=== PATIENT | male | born 1970 | race Caucasian/White ===

== ENCOUNTER → 2017-11-03 | Outpatient (CLI) | payer BC ==
[2017-11-03 11:25] LABS: BUN/CREATININE RATIO 13.7 (6.0-26.0); CALCIUM 8.9 mg/dL (8.4-10.2); POTASSIUM 4.6 mmol/L (3.6-5.0); TOTAL BILIRUBIN 0.9 mg/dL (0.2-1.3); TOTAL PROTEIN 7.1 g/dL (6.3-8.2)
== END ==
LOC: LAB 10:38
PROVIDERS: Family Medicine
DX: Z00.00 Encounter for general adult medical examination without abnormal findings (principal); Z23 Encounter for immunization; N52.9 Male erectile dysfunction, unspecified; M25.561 Pain in right knee; R06.81 Apnea, not elsewhere classified; L30.9 Dermatitis, unspecified

== ENCOUNTER → 2018-02-11 | Outpatient (CLI) | payer BC ==
[2018-02-11 09:36] LABS: EOS # 0.1 (0.04-0.40); EOS % 1.7 % (0.0-4.0); HEMATOCRIT 46.1 % (42.0-52.0); HEMOGLOBIN 15.6 g/dL (13.5-18.0); LYMPH# 1.5 (1.50-4.00); MEAN CELL VOLUME 92 fl (78-100); MEAN CORPUSCULAR HEMOGLOBIN 31 pg (27-31); MEAN CORPUSCULAR HGB CONC 34 g/dL (33-37); MEAN PLATELET VOLUME 10.6 fl (7.4-10.4); MONO # 0.5 (0.20-0.80); NEU # 3.6 (1.40-6.50); PLATELET COUNT 159 K/mm3 (130-400); RED BLOOD COUNT 4.99 M/mm3 (4.20-5.60); RED CELL DISTRIBUTION WIDTH 12.8 % (11.5-14.5); WHITE BLOOD COUNT 5.8 K/mm3 (4.8-10.8)
[2018-02-11 10:33] LABS: ALBUMIN 4.2 g/dL (3.5-5.0); CALCIUM 9.3 mg/dL (8.4-10.2); POTASSIUM 4.6 mmol/L (3.6-5.0); TOTAL BILIRUBIN 0.9 mg/dL (0.2-1.3); TOTAL PROTEIN 6.9 g/dL (6.3-8.2)
[2018-02-11 11:35] LABS: ERYTHROCYTE SEDIMENTATION RATE 2 mm/hr (0-15)
[2018-02-11 21:26] LABS: C-REACTIVE PROTEIN XXX
[2018-02-12 02:11] LABS: RPR (VDRL) Negative (Negative)
[2018-02-12 09:37] LABS: LYME DISEASE EIA Negative (Negative)
[2018-02-13 13:36] LABS: QUANTIFERON TB GOLD Negative (Negative)
[2018-02-14 10:59] LABS: ANGIOTENSIN CONVERTING ENZYME 35 U/L (8 - 53)
== END ==
LOC: RAD 08:35
DX: H47.10 Unspecified papilledema (principal); I10 Essential (primary) hypertension

== ENCOUNTER → 2018-04-16 | Outpatient (CLI) | payer BC | LOC: LAB 09:01 | DX: M47.012 Anterior spinal artery compression syndromes, cervical region (principal) ==

== ENCOUNTER → 2022-02-20 | Outpatient (CLI) | payer BC ==
[2022-02-20 10:43] LABS: HEMATOCRIT 48.2 % (42.0-52.0); HEMOGLOBIN 16.7 g/dL (13.5-18.0); MEAN PLATELET VOLUME 10.5 fl (7.4-10.4); RED BLOOD COUNT 5.35 M/mm3 (4.20-5.60); RED CELL DISTRIBUTION WIDTH 11.9 % (11.5-14.5); WHITE BLOOD COUNT 6.8 K/mm3 (4.8-10.8)
[2022-02-20 10:47] LABS: ALBUMIN 4.2 g/dL (3.5-5.0); POTASSIUM 4.4 mmol/L (3.5-5.1)
[2022-02-20 10:48] LABS: CALCIUM 9.1 mg/dL (8.3-10.5)
[2022-02-20 10:50] LABS: TOTAL PROTEIN 7.2 g/dL (6.4-8.3)
[2022-02-20 10:52] LABS: TOTAL BILIRUBIN 1.4 mg/dL (0.2-1.2)
== END ==
LOC: LAB 10:02
PROVIDERS: Family Medicine
DX: Z00.00 Encounter for general adult medical examination without abnormal findings (principal); Z13.1 Encounter for screening for diabetes mellitus; Z13.220 Encounter for screening for lipoid disorders; Z12.5 Encounter for screening for malignant neoplasm of prostate; Z12.11 Encounter for screening for malignant neoplasm of colon; K64.9 Unspecified hemorrhoids; R09.89 Other specified symptoms and signs involving the circulatory and respiratory systems

== ENCOUNTER → 2023-01-15 | Outpatient (CLI) | payer BC ==
[2023-01-15 17:35] LABS: CALCIUM 9.1 mg/dL (8.3-10.5)
== END ==
LOC: LAB 17:00
PROVIDERS: Family Medicine
DX: E11.9 Type 2 diabetes mellitus without complications (principal); E66.01 Morbid (severe) obesity due to excess calories

== ENCOUNTER → 2023-04-17 | Outpatient (CLI) | payer BC ==
[2023-04-17 09:31] LABS: CALCIUM 8.9 mg/dL (8.3-10.5)
== END ==
LOC: LAB 09:07
PROVIDERS: Family Medicine
DX: E11.9 Type 2 diabetes mellitus without complications (principal)

== ENCOUNTER → 2023-07-15 | Outpatient (CLI) | payer BC ==
[2023-07-15 08:54] LABS: CALCIUM 9.2 mg/dL (8.3-10.5)
== END ==
LOC: LAB 08:19
PROVIDERS: Family Medicine
DX: I10 Essential (primary) hypertension (principal); E78.2 Mixed hyperlipidemia; E11.9 Type 2 diabetes mellitus without complications

== ENCOUNTER → 2023-11-12 | Outpatient (CLI) | payer BC ==
[2023-11-12 09:22] LABS: CALCIUM 9.3 mg/dL (8.3-10.5)
== END ==
LOC: LAB 08:55
PROVIDERS: Family Medicine
DX: I10 Essential (primary) hypertension (principal); E78.2 Mixed hyperlipidemia; E11.9 Type 2 diabetes mellitus without complications

== ENCOUNTER → 2024-04-01 | Outpatient (CLI) | payer BC | LOC: LAB 08:35 | DX: E11.9 Type 2 diabetes mellitus without complications (principal) ==

== ENCOUNTER → 2024-06-28 | Outpatient (CLI) | payer BC ==
[2024-06-28 09:27] LABS: CALCIUM 8.6 mg/dL (8.3-10.5)
== END ==
LOC: LAB 09:04
PROVIDERS: Family Medicine
DX: E11.9 Type 2 diabetes mellitus without complications (principal)